=== PATIENT | female | born 1930 | race Caucasian/White ===

== ENCOUNTER 2020-08-02 04:41 | Emergency (ER) | payer OTHER ==
[~2020-08-02] VITALS: Ht 162.5 cm; Wt 79.8 kg
[2020-08-02 05:37] LABS: ALBUMIN 3.3 gm/dl (3.1-4.5); ALKALINE PHOSPHATASE 80 U/L (45-117); BUN 25 mg/dl (7-24); CHLORIDE 109 mmol/L (98-107); POTASSIUM 3.9 mmol/L (3.5-5.1); SGOT/AST 10 IU/L (3-35); SGPT/ALT 8 U/L (12-78); SODIUM 143 mmol/L (136-145); TOTAL PROTEIN 7.3 gm/dL (6.4-8.2)
[2020-08-02 05:40] LABS: TROPONIN I < 0.015 ng/ml (<0.045)
[2020-08-02 06:03] LABS: BASO % 0.3 % (0.0-1.0); EOS # 0.1 10*3/uL (0.0-0.4); EOS % 1.6 % (1.0-4.0); HEMATOCRIT 34.4 % (37.0-47.0); LYMPH # 2.2 10*3/uL (1.3-4.4); LYMPH % 25.1 % (27.0-41.0); MEAN CELL VOLUME 89.1 fl (81.0-99.0); MEAN CORPUSCULAR HGB 28.5 pg (27.0-31.0); MEAN PLATELET VOLUME 9.7 fl (9.6-12.3); MONO # 0.7 10*3/uL (0.1-1.0); MONO % 8.1 % (3.0-9.0); NEUT # 5.6 10*3/uL (2.3-7.9); NEUT % 63.8 % (47.0-73.0); PLATELET COUNT AUTOMATED 297 10*3/uL (130-400); RED BLOOD COUNT 3.86 10*6/uL (4.10-5.10); WHITE BLOOD COUNT 8.7 10*3/uL (4.8-10.8)
== END 2020-08-02 07:30 ==
LOC: ED 04:41
PROVIDERS: Internal Medicine
DX: R51.9 Headache, unspecified (principal); D64.9 Anemia, unspecified; N18.9 Chronic kidney disease, unspecified; R07.89 Other chest pain; J45.909 Unspecified asthma, uncomplicated; M81.0 Age-related osteoporosis without current pathological fracture; F41.9 Anxiety disorder, unspecified; Z88.2 Allergy status to sulfonamides; J44.9 Chronic obstructive pulmonary disease, unspecified; Z88.0 Allergy status to penicillin; Z88.8 Allergy status to other drugs, medicaments and biological substances; Z88.6 Allergy status to analgesic agent; Z86.16 Personal history of COVID-19

== ENCOUNTER 2020-10-22 16:21 | Inpatient (IN) | payer MEDICARE ==
[~2020-10-22] VITALS: Ht 152.4 cm; Wt 83.0 kg
[2020-10-22 16:21] VITALS: BP 126/79
[2020-10-22 16:38] LABS: BASO % 0.1 % (0.0-1.0); EOS # 0.1 10*3/uL (0.0-0.4); EOS % 1.1 % (1.0-4.0); HEMATOCRIT 36.3 % (37.0-47.0); LYMPH # 1.7 10*3/uL (1.3-4.4); MEAN CELL VOLUME 88.8 fl (81.0-99.0); MEAN CORPUSCULAR HGB 27.9 pg (27.0-31.0); MEAN CORPUSCULAR HGB CONC 31.4 g/dl (33.0-37.0); MEAN PLATELET VOLUME 9.9 fl (9.6-12.3); MONO # 0.7 10*3/uL (0.1-1.0); NEUT # 6.9 10*3/uL (2.3-7.9); NEUT % 73.2 % (47.0-73.0); PLATELET COUNT AUTOMATED 260 10*3/uL (130-400); RED BLOOD COUNT 4.09 10*6/uL (4.10-5.10); RED CELL DISTRI WIDTH 14.5 % (0-14.5); WHITE BLOOD COUNT 9.4 10*3/uL (4.8-10.8)
[2020-10-22 16:55] LABS: ALBUMIN 3.3 gm/dl (3.1-4.5); BUN 32 mg/dl (7-24); CHLORIDE 107 mmol/L (98-107); CREATININE 1.24 mg/dL (0.55-1.02); SGOT/AST 11 IU/L (3-35); SGPT/ALT 8 U/L (12-78); SODIUM 139 mmol/L (136-145); TOTAL PROTEIN 7.2 gm/dL (6.4-8.2)
[2020-10-22 16:57] LABS: ALKALINE PHOSPHATASE 68 U/L (45-117)
[2020-10-22 16:58] LABS: TROPONIN I < 0.015 ng/ml (<0.045)
[2020-10-22 17:34] VITALS: BP 116/76
[2020-10-22 18:21] VITALS: BP 137/75
[2020-10-22 19:29] VITALS: BP 125/59
[2020-10-22 22:10] VITALS: BP 138/65
[2020-10-22 22:49] VITALS: BP 130/64
[2020-10-23 00:15] VITALS: BP 137/99
[2020-10-23] MEDS ORDERED: PHENAZOPYRIDIN100 M1 PO (00:52)
[2020-10-23] MEDS ORDERED: MIRTAZAPINE15 M2 PO (00:53)
[2020-10-23] MEDS ORDERED: MELATONIN5 M1 SL (00:53)
[2020-10-23] MEDS ORDERED: ACCUNEB 0.1.25 MG/1 INH (00:54)
[2020-10-23] MEDS ORDERED: DEPAKENE S250 MG/5 M PO (00:54)
[2020-10-23] MEDS ORDERED: TYLENOL EXTRA500 MG PO (00:55)
[2020-10-23] MEDS ORDERED: ATIVAN1 MG PO (00:55)
[2020-10-23] MEDS ORDERED: VISTARIL50 MG PO (00:56)
[2020-10-23] MEDS ORDERED: EMERGEN-C 500500 MG PO (00:57)
[2020-10-23] MEDS ORDERED: CLARITIN10 MG PO (00:57)
[2020-10-23] MEDS ORDERED: MIRALAX17 GM PO (00:58)
[2020-10-23] MEDS ORDERED: ASPIRIN CHEWABL81 MG PO (00:58)
[2020-10-23] MEDS ORDERED: BREO ELLIPTA 21 EACH INH (00:58)
[2020-10-23] MEDS ORDERED: FLORASTOR250 MG PO (00:59)
[2020-10-23] MEDS ORDERED: LASIX20 MG PO (00:59)
[2020-10-23] MEDS ORDERED: FAMOTIDINE40 MG PO (00:59)
[2020-10-23] MEDS ORDERED: CARBIDOPA-LEVO1 EAC6 PO (01:00)
[2020-10-23] MEDS ORDERED: CALCIUM-VITAMI1 EAC2 PO (01:03)
[2020-10-23] MEDS ORDERED: SIMVASTATIN20 MG PO (01:03)
[2020-10-23] MEDS ORDERED: ZOFRAN4 MG PO (01:04)
[2020-10-23] MEDS ORDERED: METHOCARBAMOL500 M1 PO (01:06)
[2020-10-23 06:09] LABS: BASO % 0.2 % (0.0-1.0); EOS # 0.1 10*3/uL (0.0-0.4); EOS % 1.3 % (1.0-4.0); HEMATOCRIT 37.6 % (37.0-47.0); LYMPH # 1.6 10*3/uL (1.3-4.4); LYMPH % 20.1 % (27.0-41.0); MEAN CELL VOLUME 88.5 fl (81.0-99.0); MEAN CORPUSCULAR HGB CONC 31.6 g/dl (33.0-37.0); MEAN PLATELET VOLUME 9.7 fl (9.6-12.3); MONO # 0.8 10*3/uL (0.1-1.0); MONO % 9.4 % (3.0-9.0); NEUT # 5.6 10*3/uL (2.3-7.9); NEUT % 68.1 % (47.0-73.0); PLATELET COUNT AUTOMATED 260 10*3/uL (130-400); RED BLOOD COUNT 4.25 10*6/uL (4.10-5.10); RED CELL DISTRI WIDTH 14.6 % (0-14.5); WHITE BLOOD COUNT 8.2 10*3/uL (4.8-10.8)
[2020-10-23 06:24] LABS: ALBUMIN 3.3 gm/dl (3.1-4.5); CREATININE 1.15 mg/dL (0.55-1.02); POTASSIUM 3.8 mmol/L (3.5-5.1)
[2020-10-23 06:30] LABS: THYROID STIM HORMONE (HS) 4.9 uIU/ml (0.358-4.75)
[2020-10-23 08:00] VITALS: BP 136/75
[2020-10-23 12:00] VITALS: BP 132/63
[2020-10-23 20:00] VITALS: BP 123/91
[2020-10-24 08:00] VITALS: BP 135/78
[2020-10-24 16:09] VITALS: BP 127/98
[2020-10-24 20:00] VITALS: BP 151/84
[2020-10-25] VITALS: BP 147/87
[2020-10-25 08:00] VITALS: BP 156/99
[2020-10-25 12:00] VITALS: BP 148/91
[2020-10-25 16:00] VITALS: BP 134/86
[2020-10-25 20:00] VITALS: BP 150/84
[2020-10-26] VITALS: BP 131/77
[2020-10-26 06:02] LABS: ALKALINE PHOSPHATASE 69 U/L (45-117); BUN 32 mg/dl (7-24); CHLORIDE 108 mmol/L (98-107); CREATININE 1.03 mg/dL (0.55-1.02); POTASSIUM 3.7 mmol/L (3.5-5.1); SGOT/AST 21 IU/L (3-35); SGPT/ALT 11 U/L (12-78); SODIUM 140 mmol/L (136-145); TOTAL PROTEIN 6.8 gm/dL (6.4-8.2)
[2020-10-26 06:21] LABS: BASO % 0.2 % (0.0-1.0); EOS # 0.2 10*3/uL (0.0-0.4); EOS % 1.7 % (1.0-4.0); HEMATOCRIT 36.7 % (37.0-47.0); LYMPH # 1.7 10*3/uL (1.3-4.4); MEAN CELL VOLUME 88.2 fl (81.0-99.0); MEAN CORPUSCULAR HGB 27.9 pg (27.0-31.0); MEAN CORPUSCULAR HGB CONC 31.6 g/dl (33.0-37.0); MEAN PLATELET VOLUME 10.2 fl (9.6-12.3); MONO # 0.9 10*3/uL (0.1-1.0); MONO % 9.5 % (3.0-9.0); NEUT # 6.7 10*3/uL (2.3-7.9); NEUT % 70.1 % (47.0-73.0); PLATELET COUNT AUTOMATED 268 10*3/uL (130-400); RED BLOOD COUNT 4.16 10*6/uL (4.10-5.10); RED CELL DISTRI WIDTH 14.7 % (0-14.5); WHITE BLOOD COUNT 9.6 10*3/uL (4.8-10.8)
[2020-10-26 08:00] VITALS: BP 150/90
[2020-10-26] MEDS ORDERED: ATIVAN1 MG PO (11:50)
[2020-10-26] MEDS ORDERED: LIPITOR10 MG PO (11:50)
[2020-10-26] MEDS ORDERED: NUPLAZID34 MG PO (11:51)
[2020-10-26 12:00] VITALS: BP 153/68
== END 2020-10-26 12:49 | DRG 682 ==
LOC: ED 16:21 → EDHOLD 17:48 → 5E 17:48
PROVIDERS: Registered Nurse; Student in an Organized Health Care Education/Training Program; ADMIT Family Medicine; ATTEND Family Medicine
DX: N17.0 Acute kidney failure with tubular necrosis (principal); G93.41 Metabolic encephalopathy; F32.3 Major depressive disorder, single episode, severe with psychotic features; F02.81 Dementia in other diseases classified elsewhere, unspecified severity, with behavioral disturbance; I47.2 Ventricular tachycardia; R07.89 Other chest pain; F41.9 Anxiety disorder, unspecified; Z96.649 Presence of unspecified artificial hip joint; G20 Parkinson's disease; N18.31 Chronic kidney disease, stage 3a; Z53.29 Procedure and treatment not carried out because of patient's decision for other reasons; J45.909 Unspecified asthma, uncomplicated; D64.9 Anemia, unspecified; E83.41 Hypermagnesemia; Z88.1 Allergy status to other antibiotic agents; Z88.5 Allergy status to narcotic agent; Z88.0 Allergy status to penicillin; Z82.49 Family history of ischemic heart disease and other diseases of the circulatory system; Z80.8 Family history of malignant neoplasm of other organs or systems; Z79.899 Other long term (current) drug therapy; Z79.82 Long term (current) use of aspirin; Z88.2 Allergy status to sulfonamides; Z88.6 Allergy status to analgesic agent

== ENCOUNTER 2021-01-31 08:14 | Emergency (ER) | payer MEDICARE ==
[~2021-01-31] VITALS: Ht 152.4 cm; Wt 68.0 kg
[~2021-01-31 08:14] MED LIST: ACCUNEB 0.1.25 MG/1 INH; ASPIRIN CHEWABL81 MG PO; ATIVAN1 MG PO; BREO ELLIPTA 21 EACH INH; CALCIUM-VITAMI1 EAC2 PO; CARBIDOPA-LEVO1 EAC6 PO; CLARITIN10 MG PO; DEPAKENE S250 MG/5 M PO; EMERGEN-C 500500 MG PO; FAMOTIDINE40 MG PO; FLORASTOR250 MG PO; LASIX20 MG PO; LIPITOR10 MG PO; MELATONIN5 M1 SL; METHOCARBAMOL500 M1 PO; MIRALAX17 GM PO; MIRTAZAPINE15 M2 PO; NUPLAZID34 MG PO; PHENAZOPYRIDIN100 M1 PO; SIMVASTATIN20 MG PO; TYLENOL EXTRA500 MG PO; VISTARIL50 MG PO; ZOFRAN4 MG PO
[2021-01-31 08:58] LABS: BASO % 0.2 % (0.0-1.0); EOS # 0.1 10*3/uL (0.0-0.4); EOS % 0.8 % (1.0-4.0); HEMATOCRIT 33.3 % (37.0-47.0); LYMPH # 1.5 10*3/uL (1.3-4.4); LYMPH % 13.5 % (27.0-41.0); MEAN CELL VOLUME 87.4 fl (81.0-99.0); MEAN CORPUSCULAR HGB 27.8 pg (27.0-31.0); MEAN CORPUSCULAR HGB CONC 31.8 g/dl (33.0-37.0); MEAN PLATELET VOLUME 9.9 fl (9.6-12.3); MONO # 0.9 10*3/uL (0.1-1.0); MONO % 7.7 % (3.0-9.0); NEUT # 8.6 10*3/uL (2.3-7.9); NEUT % 77.3 % (47.0-73.0); PLATELET COUNT AUTOMATED 251 10*3/uL (130-400); RED BLOOD COUNT 3.81 10*6/uL (4.10-5.10); RED CELL DISTRI WIDTH 14.5 % (0-14.5); WHITE BLOOD COUNT 11.1 10*3/uL (4.8-10.8)
[2021-01-31 09:21] LABS: BUN 26 mg/dl (7-24); CHLORIDE 105 mmol/L (98-107); CREATININE 0.88 mg/dL (0.55-1.02); POTASSIUM 3.5 mmol/L (3.5-5.1); SODIUM 139 mmol/L (136-145)
[2021-01-31 09:23] LABS: TROPONIN I < 0.015 ng/ml (<0.045)
== END 2021-01-31 12:30 ==
LOC: ED 08:14
PROVIDERS: Emergency Medicine
DX: M17.0 Bilateral primary osteoarthritis of knee (principal); G89.29 Other chronic pain; R59.0 Localized enlarged lymph nodes; N18.9 Chronic kidney disease, unspecified; Z88.0 Allergy status to penicillin; Z88.1 Allergy status to other antibiotic agents; Z88.8 Allergy status to other drugs, medicaments and biological substances; Z88.2 Allergy status to sulfonamides; Z79.899 Other long term (current) drug therapy; Z79.82 Long term (current) use of aspirin

== ENCOUNTER → 2021-02-08 | Outpatient (CLI) | payer MEDICARE | END | disposition home or self-care (01) | LOC: CT 13:59 | PROVIDERS: ATTEND Internal Medicine | DX: M54.89 Other dorsalgia (principal) ==